=== PATIENT | male | born 1965 | race Caucasian/White ===

== ENCOUNTER 2021-03-13 15:48 | Outpatient (REF) | payer BC, SELFPAY ==
[2021-03-13 20:25] LABS: HCT 39.4 % (40.0-50.0); HGB 13.1 g/dL (13.5-17.5); MCH 31.5 pg (27.0-33.0); MCHC 33.2 % (32.0-36.0); MCV 94.7 fL (80-95); MPV 9.4 fL (8.0-11.0); Platelet Count 222 10^3/uL (130-400); RBC 4.16 10^6/uL (4.36-5.78); RDW 13.1 % (11.8-14.1); RDW-SD 45.8 fL; WBC 7.09 10^3/uL (4.4-10.8)
[2021-03-13 21:14] LABS: ALT 27 U/L (16-63); AST 20 U/L (15-37); Alkaline Phosphatase 82 U/L (46-116); Anion Gap 3.7 mmol/L (3-11); BUN 10 mg/dL (7-18); Bilirubin, Total 0.1 mg/dL (0.2-1.0); CO2 31.3 mmol/L (21.0-32.0); CREATININE 0.8 mg/dL (0.70-1.30); Calcium 9.1 mg/dL (8.5-10.1); Calculated LDL 119 mg/dL (<100); Chloride 104 mmol/L (98-107); Cholesterol 189 mg/dL (<200); Glucose 96 mg/dL (74-106); HDL Cholesterol 47 mg/dL (40-60); Potassium 3.8 mmol/L (3.5-5.1); Sodium 139 mmol/L (136-145); TSH (W/Ref FT4) 0.59 uIU/mL (0.36-3.74); Total Protein 6.7 g/dL (6.4-8.2); Triglyceride 119 mg/dL (<150)
== END 2021-03-13 15:49 | disposition home or self-care (01) ==
LOC: NCHCN 15:48
PROVIDERS: PCP Internal Medicine; Visit Provider Internal Medicine
DX: R53.83 Other fatigue (principal); E78.5 Hyperlipidemia, unspecified; Z12.5 Encounter for screening for malignant neoplasm of prostate
CPT/HCPCS: 80053; 80061; 84153; 85027; 84443

== ENCOUNTER 2021-03-27 16:49 | Outpatient (REF) | payer BC, SELFPAY ==
[2021-03-27 21:29] LABS: Reticulocyte 1.3 % (0.5-2.4)
[2021-03-27 21:40] LABS: Iron 65 ug/dL (65-175); Total Iron Binding Capacity 295 ug/dL (250-450); Transferrin Sat 22 % (20-55)
[2021-03-27 22:11] LABS: Ferritin 104 ng/mL (26-388); Vitamin B12 460 pg/mL (193-986)
== END 2021-03-27 16:50 | disposition home or self-care (01) ==
LOC: NCHCN 16:49
PROVIDERS: PCP Internal Medicine; Visit Provider Internal Medicine
DX: D64.9 Anemia, unspecified (principal)
CPT/HCPCS: 82607; 82728; 83540; 83550; 85045

== ENCOUNTER 2021-05-04 08:29 | Outpatient (REF) | payer BC, SELFPAY ==
[2021-05-04 14:33] LABS: Abs Immature Grans 0.01 10^3/uL (0.0-0.06); Absolute Basophil Count 0.04 10^3/uL (0.0-0.2); Absolute Lymphocyte Count 1.61 10^3/uL (1.2-3.4); Absolute Monocyte Count 0.75 10^3/uL (0.1-0.8); Absolute Neutrophil Count 3.11 10^3/uL (1.2-6.7); Basophils % 0.7; Eosinophils % 1.8; HGB 13.7 g/dL (13.5-17.5); Immature Grans % 0.2; Lymphocytes % 28.6; MCH 31.1 pg (27.0-33.0); MCHC 33.4 % (32.0-36.0); MCV 93.2 fL (80-95); MPV 9.5 fL (8.0-11.0); Monocytes % 13.3; Neutrophils % 55.4; Nucleated RBC 0 %; Platelet Count 244 10^3/uL (130-400); RDW-SD 44.9 fL; WBC 5.62 10^3/uL (4.4-10.8)
== END 2021-05-04 08:30 | disposition home or self-care (01) ==
LOC: NCHCN 08:29
PROVIDERS: PCP Internal Medicine; Visit Provider Internal Medicine
DX: D64.9 Anemia, unspecified (principal)
CPT/HCPCS: 85025

== ENCOUNTER 2022-09-08 10:32 | Outpatient (REF) | payer BC, SELFPAY ==
[2022-09-08 15:25] LABS: HCT 44.5 % (40.0-50.0); HGB 14.9 g/dL (13.5-17.5); MCH 31.2 pg (27.0-33.0); MCHC 33.5 % (32.0-36.0); MCV 93 fL (80-95); MPV 9.4 fL (8.0-11.0); Platelet Count 255 10^3/uL (130-400); RBC 4.77 10^6/uL (4.36-5.78); RDW 13.2 % (11.8-14.1); RDW-SD 45.4 fL; WBC 5.85 10^3/uL (4.4-10.8)
[2022-09-08 15:51] LABS: ALT 35 U/L (16-63); AST 31 U/L (15-37); Albumin 4.2 g/dL (3.4-5.0); Alkaline Phosphatase 81 U/L (46-116); Anion Gap 6.9 mmol/L (3-11); BUN 15 mg/dL (7-18); Bilirubin, Total 0.5 mg/dL (0.2-1.0); CO2 30.1 mmol/L (21.0-32.0); CREATININE 0.8 mg/dL (0.70-1.30); Calcium 9.5 mg/dL (8.5-10.1); Chloride 101 mmol/L (98-107); Estimated GFR 103.22 (mL/min/1.73m2); Glucose 103 mg/dL (74-106); Potassium 4.2 mmol/L (3.5-5.1); Sodium 138 mmol/L (136-145)
[2022-09-08 16:23] LABS: Total Protein 7.5 g/dL (6.4-8.2)
== END 2022-09-08 10:33 | disposition home or self-care (01) ==
LOC: NCHCN 10:32
PROVIDERS: PCP Internal Medicine; Visit Provider Internal Medicine
DX: Z00.00 Encounter for general adult medical examination without abnormal findings (principal); R10.9 Unspecified abdominal pain
CPT/HCPCS: 80053; 85027

== ENCOUNTER 2024-05-28 01:05 | Outpatient (CLI) | payer BC, SELFPAY ==
--- NOTE | 2024-05-28 08:17 | DI.RAD_ITS ---
Exam(s) XR HIP PELVIS ADULT BL EXAM: XR HIP PELVIS ADULT BL CLINICAL HISTORY: LOW BACK PAIN, M54.50. TECHNIQUE: 2D digital imaging was performed. Three views. COMPARISON: No exams were available for comparison FINDINGS: BONES: No acute fracture is present. No bony destructive lesion is seen. Prominence at the margins of the femoral heads bilaterally which could indicate femoroacetabular impingement. Degenerative mynor nges at the lower lumbar spine. JOINTS: No dislocation present. Hip joint spaces are maintained. Degenerative changes at the inferi or SI joints bilaterally the pubic symphysis is unremarkable. SOFT TISSUE: Normal. IMPRESSION: Degenerative changes of the SI joint and lower lumbar spine. 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 DATA REPOSITORY: RADIATION DOSE DELIVERED:
== END 2024-05-28 01:25 ==
LOC: DI 01:05
PROVIDERS: PCP Internal Medicine; Visit Provider Internal Medicine
DX: M51.362 Other intervertebral disc degeneration, lumbar region with discogenic back pain and lower extremity pain (principal)
CPT/HCPCS: 73521

== ENCOUNTER 2024-11-12 10:58 | Outpatient (REF) | payer BC, SELFPAY ==
[2024-11-12 14:41] LABS: HCT 45.8 % (40.0-50.0); HGB 15.2 g/dL (13.5-17.5); MCH 31.7 pg (27.0-33.0); MCHC 33.2 % (32.0-36.0); MCV 95 fL (80-95); MPV 9.7 fL (8.0-11.0); Platelet Count 213 10^3/uL (130-400); RDW 13.3 % (11.8-14.1); RDW-SD 47.7 fL; WBC 6.18 10^3/uL (4.4-10.8)
[2024-11-12 15:04] LABS: Anion Gap 4.8 mmol/L (3-11); BUN 15 mg/dL (7-18); CO2 33.2 mmol/L (21.0-32.0); CREATININE 0.8 mg/dL (0.70-1.30); Calcium 9.8 mg/dL (8.5-10.1); Calculated LDL 119 mg/dL (<100); Chloride 103 mmol/L (98-107); Cholesterol 214 mg/dL (<200); Estimated GFR 101.95 (mL/min/1.73m2); Glucose 98 mg/dL (74-106); HDL Cholesterol 79 mg/dL (>or=40); Potassium 4.4 mmol/L (3.5-5.1); Sodium 141 mmol/L (136-145); Triglyceride 84 mg/dL (<150)
[2024-11-12 21:58] LABS: PSA, Screening 1.2 ng/mL (<=3.5)
== END 2024-11-12 10:59 | disposition home or self-care (01) ==
LOC: NCHCN 10:58
PROVIDERS: PCP Internal Medicine; Visit Provider Internal Medicine
DX: Z00.00 Encounter for general adult medical examination without abnormal findings (principal)
CPT/HCPCS: 80048; 80061; 84153; 85027